=== PATIENT | female | born 1995 ===

== ENCOUNTER 2018-12-28 17:50 | Emergency (ER) | payer OTHER ==
[2018-12-28 18:31] VITALS: BMI 24.6
--- NOTE | 2018-12-28 21:16 | OBHP ---
Datetime: 12/28/2018 18:50 IP Adm Impression: , intrauterine ; No Active Labor; Intact Membranes IP Admit Plan: Observation/Evaluation Admit Comment, IP Provider: 23 yo female G1 with an IUP at 32.1 weeks and sent from Dr. Bowen's office for an NST secondary to decrease movement for a couple of days although had improved over the past 24 hours. Pt denies any LOF, BV o VD and admits to uneventful course. PMHx and PSHx Negative Meds PNV NKDA Social Hx: Denies x 3 PE: As noted above A/P at 32.1 weeks Decreased Movement although improved lately NST Reactive No Uterine activity + FM recorded, palpated and perceived by patient Pt reassured and Dr. Bowen notified and request to Discharge patient home Patient left in Stable and Satisfactory condition with instructions to do Kick Count Advised to increase po water intake Pelvic Type - PN: Adequate Extremities - PN: Normal Abdomen - PN: Normal Back - PN: Normal Breast - PN: Not Done Lungs - PN: Normal Heart - PN: Normal Thyroid - PN: Normal Neurologic - PN: Normal HEENT - PN: Normal General - PN: Normal FHR - Baseline A Provider: 150 Membranes, Provider: Intact Gestation - Est Wks by US: 32.1 EGA AdmitDate IP: 32.1 Vital Signs Provider: Reviewed IP Chief Complaint: Decreased movement NICHD Variability Prov Fetus A: Moderate 6-25bpm NICHD Accel Fetus A IP Provider: [id number] FHR Category Provider Fetus A: Category I NICHD Decel Fetus A IP Provider: None Genitourinary Exam: Normal DTRs - PN: Normal
--- NOTE | 2018-12-28 21:19 | OBDCSUM ---
Datetime: 12/28/2018 19:53 Discharged to, Provider: Home Follow up at, Provider: DR BOWEN Disch Instr Activity: Normal activity Disch Instr Diet: Regular Discharge Instructions, Provider: Routine instructions given Discharge Time: 12/28/2018 19:56 Follow up in weeks, Provider: 01/10/19 Contraception discussed, Prov: No Disch Activity Restrictions: No exercising; No lifting Discharge Comment, Provider: 23 yo female G1 with an IUP at 32.1 weeks [address] sent from Dr. Bowen's offic e for an NST secondary to decrease movement for a couple of days although had improved over the past 24 hours. Pt denies any LOF, BV o VD and admits to uneventful course. PMHx and PSHx Negative Meds PNV NKDA Social Hx: Denies x 3 PE: As noted above A/P at 32.1 weeks Decreased Movement although improved lately NST Reactive No Uterine activity + FM recorded, palpated and perceived by patient Pt reassured and Dr. Bowen notified and request to Discharge patient home Patient left in Stable and Satisfactory condition with instructions to do Kick Count Advised to increase po water intake Discharge Diagnosis Prov Other: Decreased Movement
[2018-12-29 00:35] VITALS: BP 108/55; PULSE 88; RESP 20; TEMP 98.7; O2SAT 100
== END 2018-12-28 20:00 | disposition home or self-care (01) ==
LOC: C.EROB 17:50
DX: O36.8130 Decreased fetal movements, third trimester, not applicable or unspecified (principal); Z3A.32 32 weeks gestation of pregnancy